=== PATIENT | female | born 1965 | race African-American/Black ===

== ENCOUNTER 2024-11-24 08:16 | Outpatient (RCR) | payer OTHER, SELFPAY | END 2024-11-24 09:54 | disposition home or self-care (01) | LOC: HO.PT 08:16 | PROVIDERS: PCP Internal Medicine; Visit Provider Nurse Practitioner Family | DX: R35.0 Frequency of micturition (principal); N39.41 Urge incontinence | CPT/HCPCS: 97110; 97112; 97140; 97162 ==